=== PATIENT | female | born 1990 | race Caucasian/White ===

== ENCOUNTER → 2022-09-20 | Outpatient (CLI) | payer OTHER ==
[2022-09-20 18:13] LABS: T4, Free (Free Thyroxine) 1.47 ng/dL (0.800-1.800)
[2022-09-20 20:47] LABS: Walnut IgE (Food) <0.10 kU/L
[2022-09-20 20:48] LABS: Peanut IgE <0.10 kU/L
== END | disposition home or self-care (01) ==
LOC: LABWHC1 10:38
PROVIDERS: ATTEND Allergy & Immunology
DX: J30.9 Allergic rhinitis, unspecified (principal); L50.9 Urticaria, unspecified; R53.83 Other fatigue
CPT/HCPCS: 36415; 84439; 84443; 84480; 86003; 86376; 86800

== ENCOUNTER → 2022-10-21 | Outpatient (CLI) | payer OTHER ==
--- NOTE | 2022-10-21 16:52 | CT ---
EXAMINATION TYPE: CT sinus wo con DATE OF EXAM: 10/21/2022 COMPARISON: NONE HISTORY: CHRONIC SINUSITIS. left sided sinus pain. CT DLP: 648 mGycm. Automated Exposure Control for Dose Reduction was Utilized. TECHNIQUE: CT scan of the sinuses is performed without contrast, axial images are obtained, coronal r eformatted images are also reviewed. FINDINGS: There are mucous retention cysts or polyps in the inferior aspect of the bilateral maxillar y sinuses with patchy fluid bilaterally. There is patchy fluid in the bilateral ethmoid sinuses. Mild patchy fluid in the posterior inferior left frontal sinus. Mild mucosal thickening in the sphenoid s inuses bilaterally. The ostiomeatal complex is occluded bilaterally on the coronal images due to antr al mucosal thickening. Nasal septum is deviated to the left of midline. Visualized portion of mastoid air cells show no abnormal opacification. The globes are intact bilate rally. Visualized brain parenchyma unremarkable. IMPRESSION: Acute on chronic paranasal sinus disease as noted above.
== END | disposition home or self-care (01) ==
LOC: RADCTMAIN 16:16
PROVIDERS: ATTEND Allergy & Immunology
DX: J32.0 Chronic maxillary sinusitis (principal); J32.9 Chronic sinusitis, unspecified; J32.3 Chronic sphenoidal sinusitis
CPT/HCPCS: 70486